=== PATIENT | male | born 1975 | race American Indian/Alaskan Native ===

== ENCOUNTER 2016-06-29 02:34 | Emergency (ER) | payer SELFPAY ==
[2016-06-29 03:16] VITALS: BP 108/72
[2016-06-29] MEDS ORDERED: XANAX PO ONE (05:04)
[2016-06-29] MEDS ORDERED: NORCO 10/325 PO ONE (05:04)
--- NOTE | 2016-06-29 06:21 | Emergency Department Report ---
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 Patient reports that he thought he had a hemorrhoid and was trying to use Preparation H without much relief. Patient comes in today seeking relief of his boil. Home Medications: Previous Rx's Medication Instructions Recorded Last Taken Type Acetaminophen/Codeine [Tylenol #3] 1 tab PO Q6H PRN #12 tab 06/29/16 Unknown Rx Cephalexin [Keflex] 500 mg PO BID #20 capsule 06/29/16 Unknown Rx Allergies/Adverse Reactions: Allergies Allergy/AdvReac Type Severity Reaction Status Date / Time No Known Allergies Allergy Unverified 09/23/15 16:18 ED Review of Systems ROS: Stated complaint: RECTAL PAIN Other details as noted in HPI ED Past Medical Hx - Past Medical History Previous Medical History?: Yes Additional medical history: DDD Back pain, - Surgical History Past Surgical History?: No - Social History Smoking Status: Never Smoker Substance Use Type: None - Medications Home Medications: Home Medications Medication Instructions Recorded Confirmed Last Taken Type Acetaminophen/Codeine [Tylenol #3] 1 tab PO Q6H PRN #12 tab 06/29/16 Unknown Rx Cephalexin [Keflex] 500 mg PO BID #20 capsule 06/29/16 Unknown Rx ED Abscess Boil Physical Exam - Exam General: Vital signs noted. No distress. Alert and acting appropriately. 2 cm abscess in the perineal between the testicle and anus. Tender to touch nonerythematous. mild edematous Size: 2 cm Exam: Yes Tenderness, Yes Fluctuance, Yes Heart Murmur, Yes Normal Circulation, No Surrounding Cellulites/Erythema I & D Note - I & D Note I & D Note: Perineum clean with Betadine and draped scalpel incision. Purulent discharge with foul smell extracted. Expression of contents removed. No packing was needed. Tolerated procedure well ED Course Vital Signs 06/29/16 02:35 Temperature 98.1 F Pulse Rate 65 Respiratory 18 Rate Blood Pressure 108/72 [Right] O2 Sat by Pulse 96 Oximetry Critical care attestation.: If time is entered above; I have spent that time in minutes in the direct care of this critically ill patient, excluding procedure time. ED Medical Decision Making - Medical Decision Making Patient has been evaluated by this provider in fast track. [place] and Xanax given to relax patient for procedure. I&D incision performed patient tolerated procedure well we'll discharge patient on Keflex and have him follow up for wound check in 24-48 hours. He can come here or his primary care provider.. She verbalized understanding ED Disposition Clinical Impression: Abscess of perineum Disposition: DISCHARGED TO HOME OR SELFCARE Is pt being admited?: No Does the pt Need Aspirin: No Condition: Stable Instructions: Abscess Incision and Drainage (ED) Additional Instructions: You may do sitz bath, complete antibiotics take pain medication as prescribed follow-up with the primary care provider or the emergency room for reevaluation. Do not operate heavy machinery of car while on the Tylenol 3. He can also take Motrin 800 mg 3 times a day. Prescriptions: Acetaminophen/Codeine [Tylenol #3] 1 tab PO Q6H PRN #12 tab PRN Reason: Pain Cephalexin [Keflex] 500 mg PO BID #20 capsule Referrals: PRIMARY CARE, [Primary Care Provider] - 3-5 Days Forms: Accompanied Note, Work/School Release Form(ED)
== END 2016-06-29 07:16 | disposition home or self-care (01) ==
LOC: ED 02:34
DX: L02.818 Cutaneous abscess of other sites (principal)

== ENCOUNTER 2017-02-06 08:49 | Emergency (ER) | payer OTHER ==
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
[2017-02-06] MEDS: NORCO 10/325 PO ONE (13:11)
[2017-02-06] MEDS: ZOFRAN ODT PO ONE (13:11)
[2017-02-06] MEDS: TORADOL IM ONE (13:11)
[2017-02-06 14:25] VITALS: BP 103/68
== END 2017-02-06 14:23 | disposition home or self-care (01) ==
LOC: ED 08:49
DX: M54.42 Lumbago with sciatica, left side (principal); M54.2 Cervicalgia; G89.29 Other chronic pain; V49.49XA Driver injured in collision with other motor vehicles in traffic accident, initial encounter; Y92.488 Other paved roadways as the place of occurrence of the external cause; Y93.89 Activity, other specified; Y99.9 Unspecified external cause status
CPT/HCPCS: 72125; 72128; 72131; 96372; 99284; J1885; Q0162

== ENCOUNTER 2020-05-30 13:41 | Emergency (ER) | payer SELFPAY ==
[2020-05-30 13:47] VITALS: BP 126/60
--- NOTE | 2020-05-30 14:07 | Event Note ---
ED Screening Note ED Screening Note: multiple COVID-19 + contacts states he traveled to [place] last week +n/v/d that began three days ago states he cannot tolerate intake no cough +fever +headache +body aches PMHx none no allergies to meds This initial assessment/diagnostic orders/clinical plan/treatment(s) is/are subject to change based on patients health status, clinical progression and re- assessment by fellow clinical providers in the ED. Further treatment and workup at subsequent clinical providers discretion. Patient/guardian urged not to elope from the ED as their condition may be serious if not clinically assessed and managed. Initial orders include: labs, UA, CXR
[2020-05-30 15:06] LABS: Basophils # (Auto) 0.1 K/mm3 (0.0-0.1); Basophils % (Auto) 0.9 % (0.0-1.8); Hematocrit 47.4 % (35.5-45.6); Hemoglobin 16.7 gm/dl (11.8-15.2); Lymphocytes # (Auto) 1.4 K/mm3 (1.2-5.4); Lymphocytes % (Auto) 17.5 % (13.4-35.0); Mean Corpuscular HGB Conc 35 % (32-34); Mean Corpuscular Volume 85 fl (84-94); Monocytes # (Auto) 0.4 K/mm3 (0.0-0.8); Monocytes % (Auto) 4.9 % (0.0-7.3); Platelet Count 284 K/mm3 (140-440); Red Blood Count 5.55 M/mm3 (3.65-5.03); Red Cell Distribution Width 14.5 % (13.2-15.2)
--- NOTE | 2020-05-30 15:06 | XRay Report ---
CHEST 2 VIEWS INDICATION / CLINICAL INFORMATION: fever, covid 19 contacts. COMPARISON: None available. FINDINGS: SUPPORT DEVICES: None. HEART / MEDIASTINUM: No significant abnormality. LUNGS / PLEURA: No significant pulmonary or pleural abnormality. No pneumothorax. ADDITIONAL FINDINGS: No significant additional findings. IMPRESSION: 1. No acute findings. Signer Name: Kip Mcneill MD Signed: 05/30/2020 3:02 PM Workstation Name: [id number]
[2020-05-30 15:22] LABS: Alanine Aminotransferase 16 units/L (7-56); Albumin 4.6 g/dL (3.9-5); BUN/Creatinine Ratio 9; Blood Urea Nitrogen 11 mg/dL (9-20); Calcium 9.6 mg/dL (8.4-10.2); Hemolysis Index 5
[2020-05-30] MEDS ORDERED: HYDROcodone/ACETAMINOPHEN 5-325 MG TAB PO ONE (16:04)
[2020-05-30] MEDS ORDERED: ONDANSETRON 4 MG ODT TAB PO ONE (16:04)
--- NOTE | 2020-05-30 16:05 | Emergency Department Report ---
ED General Adult HPI - General Chief complaint: Nausea/Vomiting/Diarrhea Stated complaint: CHEST PAIN Time Seen by Provider: 05/30/20 14:05 Source: patient Mode of arrival: Ambulatory Limitations: No Limitations - History of Present Illness Initial comments: Patient is a 44-year-old male presents emergency room complaints of nausea, vomiting, diarrhea that began 3 days ago. He states that he has had contact with multiple people who were positive for COVID-19 including people that he lives with at home. He has not yet had a COVID-19 test but has one scheduled for tomorrow. He states that he traveled to [place] last week. He states he has difficulty tolerating p.o. intake. He has associated fever, chills, headache, generalized body aches. He denies any cough, chest pain, abdominal pain, shortness of breath. No past medical history. No allergies to medications. - Related Data Previous Rx's Medication Instructions Recorded Last Taken Type Acetaminophen/Codeine [Tylenol #3] 1 tab PO Q6H PRN #12 tab 06/29/16 Unknown Rx cephALEXin [Keflex] 500 mg PO BID #20 capsule 06/29/16 Unknown Rx Amoxicillin/Potassium Clav 1 each PO BID #28 tablet 02/06/17 Unknown Rx [Augmentin 875-125 Tablet] HYDROcodone/ACETAMINOPHEN [[place] 1 each PO Q8H PRN #12 tablet 02/06/17 Unknown Rx 5-325 Tablet] Naproxen 500 mg PO BID PRN #30 tablet 02/06/17 Unknown Rx Ondansetron [Zofran Odt] 4 mg PO Q8HR PRN #10 tab.rapdis 05/30/20 Unknown Rx Allergies Allergy/AdvReac Type Severity Reaction Status Date / Time No Known Allergies Allergy Unverified 09/23/15 16:18 ED Review of Systems ROS: Stated complaint: CHEST PAIN Other details as noted in HPI Comment: All other systems reviewed and negative ED Past Medical Hx - Past Medical History Previous Medical History?: Yes Additional medical history: DDD Back pain, sciatic - Surgical History Past Surgical History?: No - Social History Smoking Status: Never Smoker Substance Use Type: None - Medications Home Medications: Home Medications Medication Instructions Recorded Confirmed Last Taken Type Acetaminophen/Codeine [Tylenol #3] 1 tab PO Q6H PRN #12 tab 06/29/16 Unknown Rx cephALEXin [Keflex] 500 mg PO BID #20 capsule 06/29/16 Unknown Rx Amoxicillin/Potassium Clav 1 each PO BID #28 tablet 02/06/17 Unknown Rx [Augmentin 875-125 Tablet] HYDROcodone/ACETAMINOPHEN [[place] 1 each PO Q8H PRN #12 tablet 02/06/17 Unknown Rx 5-325 Tablet] Naproxen 500 mg PO BID PRN #30 tablet 02/06/17 Unknown Rx Ondansetron [Zofran Odt] 4 mg PO Q8HR PRN #10 tab.rapdis 05/30/20 Unknown Rx ED Physical Exam - General Limitations: No Limitations General appearance: alert, in no apparent distress - Head Head exam: Present: atraumatic, normocephalic - Eye Eye exam: Present: normal appearance - ENT ENT exam: Present: mucous membranes moist - Respiratory Respiratory exam: Present: normal lung sounds bilaterally. Absent: respiratory distress, wheezes, rales, rhonchi, stridor, chest wall tenderness, accessory muscle use, decreased breath sounds, prolonged expiratory - Cardiovascular Cardiovascular Exam: Present: regular rate, normal rhythm, normal heart sounds. Absent: systolic murmur, diastolic murmur, rubs, gallop - GI/Abdominal GI/Abdominal exam: Present: soft, normal bowel sounds. Absent: distended, tenderness, guarding, rebound, rigid - Neurological Exam Neurological exam: Present: alert, oriented X3 - Psychiatric Psychiatric exam: Present: normal affect, normal mood - Skin Skin exam: Present: warm, dry, intact ED Course Vital Signs 05/30/20 13:42 Temperature 98.8 F Pulse Rate 81 Respiratory 20 Rate Blood Pressure 126/60 O2 Sat by Pulse 97 Oximetry ED Medical Decision Making - Lab Data Result diagrams: 05/30/20 14:38 05/30/20 14:38 Lab Results 05/30/20 05/30/20 Range/Units 14:38 14:38 WBC 7.7 (4.5-11.0) K/mm3 RBC 5.55 H (3.65-5.03) M/mm3 Hgb 16.7 H (11.8-15.2) gm/dl Hct 47.4 H (35.5-45.6) % MCV 85 (84-94) fl MCH 30 (28-32) pg MCHC 35 H (32-34) % RDW 14.5 (13.2-15.2) % Plt Count 284 (140-440) K/mm3 Lymph % (Auto) 17.5 (13.4-35.0) % Saline % (Auto) 4.9 (0.0-7.3) % Eos % (Auto) 0.0 (0.0-4.3) % Baso % (Auto) 0.9 (0.0-1.8) % Lymph # (Auto) 1.4 (1.2-5.4) K/mm3 Saline # (Auto) 0.4 (0.0-0.8) K/mm3 Eos # (Auto) 0.0 (0.0-0.4) K/mm3 Baso # (Auto) 0.1 (0.0-0.1) K/mm3 Seg Neutrophils % 76.7 H (40.0-70.0) % Seg Neutrophils # 5.9 (1.8-7.7) K/mm3 Sodium 140 (137-145) mmol/L Potassium 4.0 (3.6-5.0) mmol/L Chloride 106.9 (98-107) mmol/L Carbon Dioxide 22 (22-30) mmol/L Anion Gap 15 mmol/L BUN 11 (9-20) mg/dL Creatinine 1.2 (0.8-1.3) mg/dL Estimated GFR > 60 ml/min BUN/Creatinine Ratio 9 % Glucose 104 H (75-100) mg/dL Calcium 9.6 (8.4-10.2) mg/dL Total Bilirubin 0.50 (0.1-1.2) mg/dL AST 17 (5-40) units/L ALT 16 (7-56) units/L Alkaline Phosphatase 90 (35-129) units/L Total Protein 9.0 H (6.3-8.2) g/dL Albumin 4.6 (3.9-5) g/dL Albumin/Globulin Ratio 1.0 % Lipase 14 (13-60) units/L Vital Signs 05/30/20 13:42 Temperature 98.8 F Pulse Rate 81 Respiratory 20 Rate Blood Pressure 126/60 O2 Sat by Pulse 97 Oximetry - Radiology Data Radiology results: report reviewed, image reviewed CXR no acute findings - Medical Decision Making Patient is a 44-year-old male presents emergency room complaints of nausea, vomiting, diarrhea that began 3 days ago. He states that he has had contact with multiple people who were positive for COVID-19 including people that he lives with at home. He has not yet had a COVID-19 test but has one scheduled for tomorrow. He states that he traveled to [place] last week. He states he has difficulty tolerating p.o. intake. He has associated fever, chills, he adache, generalized body aches. He denies any cough, chest pain, abdominal pain, shortness of breath. No past medical history. No allergies to medications. Vitals are normal, no hypoxia, no tachycardia, no fever. Labs are normal. Chest x-ray with no acute process. Patient given ODT Zofran and [place] while in the emergency department and symptoms improved and he was feeling much better ready go home. He was able to tolerate p.o. intake without difficulty. Given that patient has had sick contacts with COVID-19 and he is now having GI symptoms and viral-like symptoms, discussed COVID-19 with patient, discussed return precautions, discussed outpatient testing, discussed self quarantine. Patient does not meet hospital criteria for COVID-19 admission or for COVID-[address] Wesley Quiroga, ER attending reviewed patient's results and advised that he can be discharged home. Patient given prescription for Zofran. Advised patient please take medication as prescribed as needed. increase your water intake. eat a bland liquid diet and slowly advance your diet as tolerated. please self quarantine for 10 days from the onset of your symptoms. follow up with a primary care doctor. return to the emergency room for any new or worsening symptoms. Critical care attestation.: If time is entered above; I have spent that time in minutes in the direct care of this critically ill patient, excluding procedure time. ED Disposition Clinical Impression: Nausea vomiting and diarrhea, Viral illness Disposition: DC-01 TO HOME OR SELFCARE Is pt being admited?: No Does the pt Need Aspirin: No Condition: Stable Instructions: Viral Gastroenteritis, Adult, COVID-19: How to Protect Yourself and Others - CDC, COVID-19 Additional Instructions: please take medication as prescribed as needed. increase your water intake. eat a bland liquid diet and slowly advance your diet as tolerated. please self quarantine for 10 days from the onset of your symptoms. follow up with a primary care doctor. return to the emergency room for any new or worsening symptoms. Prescriptions: Ondansetron [Zofran Odt] 4 mg PO Q8HR PRN #10 tab.rapdis PRN Reason: nausea vomiting Referrals: PRIMARY CARE, [Primary Care Provider] - 2-3 Days [facility] [Provider Group] - 2-3 Days XAVIER SILVER MD [Staff Physician] - 2-3 Days Time of Disposition: 16:05 Print Language: OCCITAN
== END 2020-05-30 16:47 | disposition home or self-care (01) ==
LOC: ED 13:41
DX: B34.9 Viral infection, unspecified (principal); R11.2 Nausea with vomiting, unspecified; R19.7 Diarrhea, unspecified; Z79.899 Other long term (current) drug therapy
CPT/HCPCS: 36415; 71046; 80053; 83690; 85025; Q0162

== ENCOUNTER 2020-07-26 05:29 | Emergency (ER) | payer SELFPAY ==
[2020-07-26 05:53] VITALS: BP 117/73
--- NOTE | 2020-07-26 06:44 | Emergency Department Report ---
- General Chief complaint: Earache Stated complaint: RT EAR PAIN Time Seen by Provider: 07/26/20 06:38 Source: patient Mode of arrival: Ambulatory Limitations: No Limitations - History of Present Illness Initial comments: Patient is a 44-year-old male presents emergency room with complaints of a lump to the right ear canal that began yesterday. He states that he was scratching i n that area and this morning when he woke up it had become more swollen. He denies any drainage, fever, hearing loss, bleeding. No past medical history. No allergies medications. - Related Data Previous Rx's Medication Instructions Recorded Last Taken Type Acetaminophen/Codeine [Tylenol #3] 1 tab PO Q6H PRN #12 tab 06/29/16 Unknown Rx cephALEXin [Keflex] 500 mg PO BID #20 capsule 06/29/16 Unknown Rx Amoxicillin/Potassium Clav 1 each PO BID #28 tablet 02/06/17 Unknown Rx [Augmentin 875-125 Tablet] HYDROcodone/ACETAMINOPHEN [[place] 1 each PO Q8H PRN #12 tablet 02/06/17 Unknown Rx 5-325 Tablet] Naproxen 500 mg PO BID PRN #30 tablet 02/06/17 Unknown Rx Ondansetron [Zofran Odt] 4 mg PO Q8HR PRN #10 tab.rapdis 05/30/20 Unknown Rx Ofloxacin 0.3% [Floxin 0.3% Otic] 10 drops AD DAILY 7 Days #1 bottle 07/26/20 Unknown Rx Sulfamethoxazole/Trimethoprim 1 each PO BID 7 Days #14 tablet 07/26/20 Unknown Rx [Bactrim DS TAB] Allergies Allergy/AdvReac Type Severity Reaction Status Date / Time No Known Allergies Allergy Unverified 09/23/15 16:18 Abscess Boil HPI - HPI Chief Complaint: Earache Stated Complaint: RT EAR PAIN Time Seen by Provider: 07/26/20 06:38 Home Medications: Previous Rx's Medication Instructions Recorded Last Taken Type Acetaminophen/Codeine [Tylenol #3] 1 tab PO Q6H PRN #12 tab 06/29/16 Unknown Rx cephALEXin [Keflex] 500 mg PO BID #20 capsule 06/29/16 Unknown Rx Amoxicillin/Potassium Clav 1 each PO BID #28 tablet 02/06/17 Unknown Rx [Augmentin 875-125 Tablet] HYDROcodone/ACETAMINOPHEN [[place] 1 each PO Q8H PRN #12 tablet 02/06/17 Unknown Rx 5-325 Tablet] Naproxen 500 mg PO BID PRN #30 tablet 02/06/17 Unknown Rx Ondansetron [Zofran Odt] 4 mg PO Q8HR PRN #10 tab.rapdis 05/30/20 Unknown Rx Ofloxacin 0.3% [Floxin 0.3% Otic] 10 drops AD DAILY 7 Days #1 bottle 07/26/20 Unknown Rx Sulfamethoxazole/Trimethoprim 1 each PO BID 7 Days #14 tablet 07/26/20 Unknown Rx [Bactrim DS TAB] Allergies/Adverse Reactions: Allergies Allergy/AdvReac Type Severity Reaction Status Date / Time No Known Allergies Allergy Unverified 09/23/15 16:18 ED Review of Systems ROS: Stated complaint: RT EAR PAIN Other details as noted in HPI Comment: All other systems reviewed and negative ED Past Medical Hx - Past Medical History Previous Medical History?: Yes Additional medical history: DDD Back pain, sciatic - Surgical History Past Surgical History?: No - Social History Smoking Status: Never Smoker Substance Use Type: None - Medications Home Medications: Home Medications Medication Instructions Recorded Confirmed Last Taken Type Acetaminophen/Codeine [Tylenol #3] 1 tab PO Q6H PRN #12 tab 06/29/16 Unknown Rx cephALEXin [Keflex] 500 mg PO BID #20 capsule 06/29/16 Unknown Rx Amoxicillin/Potassium Clav 1 each PO BID #28 tablet 02/06/17 Unknown Rx [Augmentin 875-125 Tablet] HYDROcodone/ACETAMINOPHEN [[place] 1 each PO Q8H PRN #12 tablet 02/06/17 Unknown Rx 5-325 Tablet] Naproxen 500 mg PO BID PRN #30 tablet 02/06/17 Unknown Rx Ondansetron [Zofran Odt] 4 mg PO Q8HR PRN #10 tab.rapdis 05/30/20 Unknown Rx Ofloxacin 0.3% [Floxin 0.3% Otic] 10 drops AD DAILY 7 Days #1 bottle 07/26/20 Unknown Rx Sulfamethoxazole/Trimethoprim 1 each PO BID 7 Days #14 tablet 07/26/20 Unknown Rx [Bactrim DS TAB] ED Physical Exam - General Limitations: No Limitations General appearance: alert, in no apparent distress - Head Head exam: Present: atraumatic, normocephalic - Eye Eye exam: Present: normal appearance - ENT ENT exam: Present: mucous membranes moist, other (left TM and canal are normal, right canal has a 1 cm area of induration and fluctuance present at the opening of the ear canal, no drainage, no necrosis, the rest of the canal is normal in appearance, normal Right TM) - Respiratory Respiratory exam: Absent: respiratory distress, accessory muscle use - Neurological Exam Neurological exam: Present: alert, oriented X3 - Psychiatric Psychiatric exam: Present: normal affect, normal mood - Skin Skin exam: Present: warm, dry ED Course Vital Signs 07/26/20 05:52 Temperature 98.8 F Pulse Rate 72 Respiratory 16 Rate Blood Pressure 117/73 O2 Sat by Pulse 99 Oximetry - I & D Right Ear Type of Procedure: Simple Site: right ear canal Blade Size: 25 G needle Progress: Alcohol swab used to prep the ear and ear canal, 25-gauge needle used to make a small opening, purulent drainage expressed, patient tolerated well, no complications, bleeding controlled, rest of canal is normal, TM is intact ED Medical Decision Making - Medical Decision Making Patient is a 44-year-old male presents emergency room with complaints of a lump to the right ear canal that began yesterday. He states that he was scratching in that area and this morning when he woke up it had become more swollen. He denies any drainage, fever, hearing loss, bleeding. No past medical history. No allergies medications. vitals are normal. on exam: left TM and canal are normal, right canal has a 1 cm area of induration and fluctuance present at the opening of the ear canal, no drainage, no necrosis, the rest of the canal is normal in appearance, normal Right TM. I&D performed per procedure note with purulent drainage expressed on needle aspiration. given prescription for bactrim and abx ear drops. advised pt please use medication as prescribed. Please use a capful of peroxide with a small amount of water and place an ear canal for 10 minutes and then allow to drain. Follow-up with your primary care doctor for reexamination. Return to emergency room for any new or worsening symptoms. Critical care attestation.: If time is entered above; I have spent that time in minutes in the direct care of this critically ill patient, excluding procedure time. ED Disposition Clinical Impression: Abscess of right ear canal Disposition: TO HOME OR SELFCARE Is pt being admited?: No Does the pt Need Aspirin: No Condition: Stable Instructions: Ear Drops, Adult, [id number], Skin Abscess, [id number] Additional Instructions: Please use medication as prescribed. Please use a capful of peroxide with a small amount of water and place an ear canal for 10 minutes and then allow to dr duran. Follow-up with your primary care doctor for reexamination. Return to emergency room for any new or worsening symptoms. Prescriptions: Sulfamethoxazole/Trimethoprim [Bactrim DS TAB] 1 each PO BID 7 Days #14 tablet Ofloxacin 0.3% [Floxin 0.3% Otic] 10 drops AD DAILY 7 Days #1 bottle Referrals: XAVIER SILVER MD [Staff Physician] - 2-3 Days [facility] [Provider Group] - 2-3 Days Time of Disposition: 06:42 Print Language: TONGAN
== END 2020-07-26 06:57 | disposition home or self-care (01) ==
LOC: ED 05:29
DX: H60.01 Abscess of right external ear (principal); Z79.899 Other long term (current) drug therapy